=== PATIENT | male | born 1975 | race Hispanic/Latino ===

== ENCOUNTER 2021-07-23 10:54 | Outpatient (CLI) | payer OTHER | END 2021-07-23 10:55 | disposition home or self-care (01) | LOC: BICMRI 10:54 | PROVIDERS: ATTEND Family Medicine | DX: S86.812A Strain of other muscle(s) and tendon(s) at lower leg level, left leg, initial encounter (principal) ==

== ENCOUNTER 2022-12-06 18:00 | Outpatient (CLI) | payer BC | END 2022-12-06 18:01 | disposition home or self-care (01) | LOC: SLEEPLAB 18:00 | PROVIDERS: ATTEND Nurse Practitioner Family | DX: G47.33 Obstructive sleep apnea (adult) (pediatric) (principal); R53.83 Other fatigue; E11.9 Type 2 diabetes mellitus without complications; E66.9 Obesity, unspecified; R06.83 Snoring; I10 Essential (primary) hypertension | CPT/HCPCS: 95800 ==

== ENCOUNTER 2023-03-16 19:00 | Outpatient (CLI) | payer BC | END 2023-03-16 19:01 | disposition home or self-care (01) | LOC: SLEEPLAB 19:00 | PROVIDERS: ATTEND Nurse Practitioner Family | DX: G47.33 Obstructive sleep apnea (adult) (pediatric) (principal); R53.83 Other fatigue; E11.9 Type 2 diabetes mellitus without complications; E66.9 Obesity, unspecified; Z68.41 Body mass index [BMI] 40.0-44.9, adult; R06.83 Snoring; I10 Essential (primary) hypertension | CPT/HCPCS: 95811 ==

== ENCOUNTER 2024-07-04 09:22 | Outpatient (CLI) | payer BC | END 2024-07-04 09:23 | disposition home or self-care (01) | LOC: SCSRAD 09:22 | DX: M25.511 Pain in right shoulder (principal) ==